=== PATIENT | male | born 1965 | race Caucasian/White ===

== ENCOUNTER 2017-01-29 14:45 | Emergency (ER) | payer OTHER ==
--- NOTE | ~2017-01-29 | ER ---
PATIENT'S NAME: ROYAL BHAKTA [facility] AGE: 51 Y [address] ROOM: [place] [address] LOCATION: [facility] ADMIT DATE: 01/29/2017 ER/Outpatient Report DISCHARGE DATE: 01/29/2017 FAMILY PHYSICIAN: Fidel Gross MD ATTENDING PHYSICIAN: Prachi Tobias Time of Arrival: 1445 hours. Time of Evaluation: 1456 hours. IDENTIFICATION: A 51-year-old male. CHIEF COMPLAINT: Illness. HISTORY OF PRESENT ILLNESS: The patient has had cold symptoms for the last 2 weeks, that waxed and waned but certainly not improving. He has cough, productive of purulent sputum, some nasal drainage, and congestion. No fever or chills today, but he said he felt like he had a fever on Saturday. They did not actually take his temperature. He has had diffuse myalgias. He does have ill contacts at work, and he does smoke. ALLERGIES: TO PENICILLIN, CAUSES NAUSEA. CURRENT MEDICATIONS: 1. Contac Cold and Flu. 2. Aleve. MEDICAL PROBLEMS: Arthritis, nonobstructive coronary artery disease, diabetes mellitus, diet controlled. PRIOR SURGERIES: Total hip arthroplasty on the right and hernia repair. SOCIAL HISTORY: The patient works at [employer]. Tobacco use, half pack per day for 35 years. Alcohol use, denies. Drug use, denies. REVIEW OF SYSTEMS: All systems reviewed and negative other than what is noted in the HPI. FAMILY HISTORY: PATIENT'S NAME: ROYAL BHAKTA [facility] AGE: 51 Y [address] ROOM: [place] [address] LOCATION: [facility] ADMIT DATE: 01/29/2017 ER/Outpatient Report DISCHARGE DATE: 01/29/2017 FAMILY PHYSICIAN: Fidel Gross MD ATTENDING PHYSICIAN: Prachi Tobias No pertinent family history. PHYSICAL EXAMINATION: VITAL SIGNS: Height 5 feet 10 inches, weight 105.6 kg, blood pressure 146/88, pulse 72, respirations 16, temperature 98.9, sats 97% on room air. GENERAL: A 51-year-old male, in no acute distress. HEENT: Head: Normocephalic, atraumatic. Ears: TMs translucent both ears. Eyes: Pupils are equal and reactive to light and accommodation. Extraocular movements intact. Conjunctivae clear. Nose: Mucosa erythematous, congested. No drainage is noted. He does have maxillary sinus tenderness to palpation. Mouth, no lesions. Pharynx, mildly erythematous. No exudate. NECK: Supple. No lymphadenopathy. No nuchal rigidity. He has shotty tender anterior lymph nodes. LUNGS: Clear to auscultation. Breath sounds are equal. No rhonchi, wheezes, or rales. HEART: Regular rate and rhythm. No murmur, rub, or gallop. ABDOMEN: Bowel sounds present. Soft, nondistended. No hepatosplenomegaly. No palpable masses. Nontender. SKIN: [place], warm, and dry. No lesions or rashes noted. EXTREMITIES: No edema. IMPRESSION: 1. Bronchitis. 2. Tobacco abuse. PLAN: Z-Marcus as directed. Fluids and rest. Tylenol or ibuprofen for fever. Follow up with Dr. Gross in 2 to 7 days. Follow up sooner if any problems or concerns. Smoking cessation was recommended. All questions have been answered. PRACHI TOBIAS MD CAR/modl /[id number] d: 01/29/17 2258 t: 01/31/17 1432, OUTPATIENT REPORT
== END 2017-01-29 15:05 | disposition disaster alternative care site (69) ==
LOC: GMED 14:45
DX: J40 Bronchitis, not specified as acute or chronic (principal); F17.210 Nicotine dependence, cigarettes, uncomplicated; E11.9 Type 2 diabetes mellitus without complications; M19.90 Unspecified osteoarthritis, unspecified site

== ENCOUNTER 2017-04-17 14:24 | Observation (INO) | payer OTHER ==
[~2017-04-17] VITALS: Ht 182.9 cm; Wt 97.7 kg
--- NOTE | ~2017-04-17 | ER ---
PATIENT'S NAME: ROYAL BHAKTA [facility] AGE: 51 Y [address] ROOM: [address] [address] LOCATION: [facility] ADMIT DATE: 04/17/2017 ER/Outpatient Report DISCHARGE DATE: FAMILY PHYSICIAN: PARAM LEW MD ATTENDING PHYSICIAN: ANDREA BHARDWAJ Time of Arrival: 1424 hours. Time of Exam: 1442 hours. IDENTIFICATION: A 51-year-old male. CHIEF COMPLAINT: Weakness and lightheaded. HISTORY OF PRESENT ILLNESS: The patient was driving when he felt like he was going to pass out. He was lightheaded and shaky, got to a friend's house, stopped there, and the friend said he looked pale, shaky, diaphoretic, and ill when he arrived to his house. This has never happened to him before. He had no chest pain during this time, but he did feel that his heart was racing and some palpitations. The patient has no known coronary artery disease. He does have a family history of some sort of heart problems and has a brother who is on the transplant list in [place] due to what sounds like some valvular heart problems. The patient himself does have diabetes, requiring metformin, not insulin. ALLERGIES: PENICILLIN. CURRENT MEDICATIONS: 1. Aspirin 81 mg daily. 2. Metformin XR 500 mg daily. 3. Cyclobenzaprine 10 mg p.r.n. 4. Tramadol 50 mg p.r.n. MEDICAL PROBLEMS: Diabetes mellitus type 2, chronic hip and back pain. PRIOR SURGERIES: Total hip arthroplasty, heart catheterization [address] Garcia in [place], reported as normal. FAMILY HISTORY: Positive for some sort of heart disease as noted above. PATIENT'S NAME: ROYAL BHAKTA [facility] AGE: 51 Y [address] ROOM: [address] [address] LOCATION: [facility] ADMIT DATE: 04/17/2017 ER/Outpatient Report DISCHARGE DATE: FAMILY PHYSICIAN: PARAM LEW MD ATTENDING PHYSICIAN: ANDREA BHARDWAJ SOCIAL HISTORY: The patient works at [employer]. Smokes 1 pack per day for 35 years, although he is cutting down. Alcohol use, denies. Drug use, denies. REVIEW OF SYSTEMS: All systems reviewed and negative other than what is noted in the HPI. PHYSICAL EXAMINATION: VITAL SIGNS: Height 5 feet 10 inches, weight 101.4 kg, blood pressure 137/83, pulse 83, respirations 14, temperature 97.3, and saturation is 98% on room air. GENERAL: A 51-year-old male, in no acute distress. HEENT: Head: Normocephalic, atraumatic. Ears: TMs translucent, both ears. Eyes: Pupils equal and reactive to light and accommodation. Extraocular movements intact. Nose: Mucosa pink. No lesions or drainage. Mouth: No lesions. Pharynx benign. NECK: Supple. No lymphadenopathy. LUNGS: Clear to auscultation. Breath sounds are equal. HEART: Regular rate and rhythm. No murmur, rub, or gallop. ABDOMEN: Bowel sounds present. Soft, nondistended, and nontender. SKIN: [place], warm, and dry. No lesions or rashes noted. NEURO: The patient is alert and oriented x4. Cranial nerves 2 through 12 grossly intact. Motor strength 5/5 throughout. Sensation is intact to light touch. DIAGNOSTIC DATA: One-view chest x-ray, no acute process, pending Radiology over-read. EKG: Normal sinus rhythm at 80 beats per minute. No acute ST elevation or depression. Hemoglobin 14.4, hematocrit 43, platelets 164, and white count 9.5 with a normal differential. Sodium 141, potassium 3.6, chloride 108, CO2 of 24, BUN 18, creatinine 0.7, and blood sugar 92. Liver enzymes normal. Magnesium 1.9. CPK 81, CK-MB 1.2, troponin I less than 0.040. Orthostatic blood pressures: Lying 137/83 with a heart rate of 83 and standing 134/69 and heart rate 96. IMPRESSION: 1. Near syncopal episode. Cardiac arrhythmias within the differential diagnosis, especially in light of his family history. The patient will be admitted by the hospitalist for telemetry in observation with serial EKG and enzymes. 2. Diabetes mellitus, type 2. 3. Tobacco abuse. 4. Mild hypokalemia. PLAN: PATIENT'S NAME: ROYAL BHAKTA [facility] AGE: 51 Y [address] ROOM: [id number] [place], [place] [address] LOCATION: [facility] ADMIT DATE: 04/17/2017 ER/Outpatient Report DISCHARGE DATE: FAMILY PHYSICIAN: PARAM LEW MD ATTENDING PHYSICIAN: ANDREA BHARDWAJ For observation. Admission per Dr. Bhardwaj, hospitalist. JASMINE TERAN MD CAR/modl /[id number] d: 04/17/17 2332 t: 04/18/17 0650, OUTPATIENT REPORT
--- NOTE | ~2017-04-17 | HP ---
PATIENT'S NAME: ROYAL BHAKTA [facility] AGE: 51 Y [address] ROOM: [place] [address] LOCATION: [facility] ADMIT DATE: 04/17/2017 History & Physical DISCHARGE DATE: FAMILY PHYSICIAN: PARAM LEW MD ATTENDING PHYSICIAN: ANDREA SLATER DATE OF SERVICE: CHIEF COMPLAINT: Dizziness. HISTORY OF PRESENT ILLNESS: This is a 51-year-old gentleman with a past medical history of type 2 diabetes mellitus, chronic lower back pain, and chronic tobacco abuse, who presented to the emergency department today when he experienced a spell of dizziness while he was driving into the city. This dizziness was associated with a feeling of passing out, sweating, as well as shaking of the hands. The patient pulled over, recollected himself, and drove again. He experienced the same symptoms a couple of more times before he presented to the emergency department. By the time he presented to the emergency department, his symptoms had resolved. On my encounter, he is alert and does not have any symptoms at this point. He denied any nausea or vomiting before or after these episodes of dizzy spells. He denied any palpitation, any chest pressure, any chest discomfort, any headache any trouble with the ears, any trouble swallowing, any abdominal pain, any burning on urination, any constipation, any leg swelling, PND, or orthopnea. REVIEW OF SYSTEMS: All other systems were reviewed and were negative, except what is mentioned in the HPI. ALLERGIES: THE PATIENT IS NOT ALLERGIC TO ANY MEDICATIONS. FAMILY HISTORY: Family history is significant for premature coronary artery disease in dad as well as brother. Brother is on heart transplant list. SOCIAL HISTORY: The patient has [id number] smoking history, currently trying to quit. No alcohol. PAST MEDICAL HISTORY: 1. Type 2 diabetes mellitus, on metformin for that. 2. History of chronic lower back pain. PATIENT'S NAME: ROYAL BHAKTA [facility] AGE: 51 Y [address] ROOM: [place] [address] LOCATION: [facility] ADMIT DATE: 04/17/2017 History & Physical DISCHARGE DATE: FAMILY PHYSICIAN: PARAM LEW MD ATTENDING PHYSICIAN: ANDREA SLATER PHYSICAL EXAMINATION: VITAL SIGNS: Blood pressure 140/90, 60, 16, afebrile. GENERAL: No acute distress. Alert and oriented x3. HEENT: Head atraumatic and normocephalic. Eyes: Nonicteric. No pallor. Oropharynx: Moist mucous membranes. CARDIOVASCULAR: S1, S2. No murmurs, gallops, or rubs. LUNGS: Clear to auscultation bilaterally. Soft, nontender, and nondistended. Bowel sounds are present. No clubbing, cyanosis, or edema. PSYCHIATRIC: Normal affect, mood, and speech. NEUROLOGIC: Cranial nerves 2 through 12 intact. No motor or sensory deficit. MUSCULOSKELETAL: No muscle tenderness or swelling noted. EKG done in the emergency department was normal sinus rhythm without any acute ST-T wave changes. CBC as well as BMP was unremarkable. One set of troponin was done which was negative. ASSESSMENT AND PLAN: 1-Syncope: We will admit this patient for observation. We will put him on continuous telemetry at this point. Interestingly, the patient has had a CT done 2 weeks ago at [facility], which was reportedly nonobstructive. He also had an echocardiography done at [place], not so long ago. We will obtain records. The patient had the both of these tests done because of history of premature coronary artery disease in the family. At this point, he does not have any new focal neurological symptoms. We will obtain a CAT scan of the head without contrast. 2. Hypokalemia, on presentation. We will replace that. 3. Type 2 diabetes mellitus. We will hold metformin at this point. Start him on sliding scale insulin. He was taking tramadol for his chronic lower back pain. We will hold that to night. We will treat the pain if any with the Tylenol. We are going to get two more sets of troponins to rule out any cardiac ischemia at this point. Further management will depend on his progress in the hospital. 4. Moderate obesity 5. tobacco abuse MD TASHA HARRIS/shirin /[id number] D: [id number] T: [id number] HISTORY & PHYSICAL
--- NOTE | ~2017-04-17 | DS ---
PATIENT'S NAME: ROYAL BHAKTA [facility] AGE: 51 Y [address] ROOM: [place] [address] LOCATION: [facility] ADMIT DATE: 04/17/2017 Discharge Summary DISCHARGE DATE: 04/18/2017 FAMILY PHYSICIAN: Fidel Gross MD ATTENDING PHYSICIAN: Mercedes Bhardwaj PRIMARY DIAGNOSES: 1. Near syncope. 2. Diabetes mellitus type 2. 3. Chronic low back pain. OPERATIONS/PROCEDURES: MRI scan of the brain was obtained 04/18/2017 negative for any intracranial abnormalities. HISTORY OF PRESENTING ILLNESS/REASON FOR ADMISSION: Please refer to the H and P dictated 04/17/2017. HOSPITAL COURSE: The patient was admitted to the hospital as noted above with a presumptive diagnosis of near syncope. He did not actually syncopize. Symptoms included dizziness and unsteadiness, which lasted for less than an hour. He was seen and evaluated in the emergency room and received some potassium replacement. Please see the ER evaluation. He remained hemodynamically stable over the course of the night. Based on mild suspicion for stroke symptoms, MRI scan was obtained, but this was negative for any acute intracranial process. By the end of the day on 04/18/2017, it was felt he would be stable enough for discharge to home with plans for close clinical followup with his primary care provider. DISCHARGE INSTRUCTIONS: 1. Diet: ADA 2000 calorie per day as tolerated. 2. Activities: As tolerated. MEDICATIONS: 1. Aspirin 81 mg p.o. daily. 2. Pennsaid 112 g solution applied topically b.i.d. 3. Metformin ER 500 mg p.o. daily. 4. Nicotine gum 4 mg daily. 5. Tramadol 50 mg p.o. q.h.s. p.r.n. 6. Flexeril 5 mg p.o. daily p.r.n. FOLLOW UP: He will follow up with his primary care provider in 5 to 7 days. CONDITION ON DISCHARGE: Fair. PATIENT'S NAME: ROYAL BHAKTA [facility] AGE: 51 Y [address] ROOM: [place] [address] LOCATION: [facility] ADMIT DATE: 04/17/2017 Discharge Summary DISCHARGE DATE: 04/18/2017 FAMILY PHYSICIAN: Fidel Gross MD ATTENDING PHYSICIAN: Mercedes Bhardwaj Total time spent on discharge process was 45 minutes. CAMILO J MD KARI LUCERO/modl /[id number] d: 04/19/17 0230 t: 05/02/17 1726, DISCHARGE SUMMARY
[2017-04-17 15:11] LABS: BASOPHIL # 0.1 K/uL (0.0-0.2); BASOPHIL % 0.6 %; EOSINOPHIL # 0.3 K/uL (0.0-0.5); EOSINOPHIL % 2.6 %; HEMOGLOBIN 14.4 g/dL (12.0-17.0); IMMATURE GRANULOCYTE % 0.2 %; LYMPHOCYTE # 2.1 K/uL (0.8-4.0); LYMPHOCYTE % 21.7 %; MCH 27.6 pg (27.0-34.0); MCHC 33.5 gm/dL (32.0-36.5); MCV 82.4 fl (83.0-98.0); MONOCYTE # 0.9 K/uL (0.0-1.0); MONOCYTE % 9.6 %; MPV 11.4 fl (9.4-12.4); NEUTROPHIL # (ANC) 6.2 K/uL (1.4-9.0); NEUTROPHIL % 65.3 %; NRBC % 0 /100WBC (0-0.00); PLATELET COUNT 164 K/uL (150-450); RBC 5.22 M/uL (4.00-6.00); RDW-CV 13.5 % (11.9-14.6); WBC 9.5 K/uL (4.0-11.0)
[2017-04-17 15:20] LABS: INR - (THERAPEUTIC) 0.99 (0.92-1.07); PROTIME 10.4 SECONDS (9.8-11.4); PTT 26 SECONDS (25-32)
[2017-04-17 15:29] LABS: ALBUMIN 3.7 gm/dL (3.5-5.0); ALK PHOS 56 IU/L (33-138); ALT 51 IU/L (12-78); ANION GAP 12.6 (10.0-19.0); AST 34 IU/L (10-40); BLOOD UREA NITROGEN 18 mg/dL (6-24); CALCIUM 8.1 mg/dL (8.5-10.5); CHLORIDE 108 mMol/L (96-110); CO2 24 mMol/L (22-32); CPK 81 IU/L (35-332); CREATININE 0.7 mg/dL (0.6-1.3); ESTIMATED GFR (MDRD EQUATION) > 60; MAGNESIUM 1.9 mg/dL (1.8-2.6); POTASSIUM 3.6 mMol/L (3.7-5.1); SODIUM 141 mMol/L (135-145); TOTAL BILIRUBIN 0.4 mg/dL (0.0-1.5)
[2017-04-17] MEDS ORDERED: ULTRAM50 MG PO (17:31)
[2017-04-17] MEDS ORDERED: FLEXERIL10 MG PO (17:32)
[2017-04-17] MEDS ORDERED: GLUCOPHAGE XR500 M1 PO (17:32)
[2017-04-17] MEDS ORDERED: PENNSAID112 GM TOP (17:34)
[2017-04-17] MEDS ORDERED: ASPIRIN LO-DOSE81 MG PO (17:35)
[2017-04-17] MEDS ORDERED: NICORETTE4 MG PO (17:38)
== END 2017-04-18 17:30 | disposition disaster alternative care site (69) ==
LOC: GMED 14:24 → GPCU 16:20
PROVIDERS: Family Medicine; ADMIT Internal Medicine
DX: R55 Syncope and collapse (principal); E11.9 Type 2 diabetes mellitus without complications; G89.29 Other chronic pain; M54.5 Low back pain; F17.210 Nicotine dependence, cigarettes, uncomplicated; E87.6 Hypokalemia; E66.8 Other obesity; Z68.29 Body mass index [BMI] 29.0-29.9, adult; Z96.649 Presence of unspecified artificial hip joint; Z88.0 Allergy status to penicillin; Z88.8 Allergy status to other drugs, medicaments and biological substances; Z79.82 Long term (current) use of aspirin; Z79.84 Long term (current) use of oral hypoglycemic drugs; Z79.899 Other long term (current) drug therapy
CPT/HCPCS: G0378; J7030